=== PATIENT | male | born 1940 | race Caucasian/White ===

== ENCOUNTER 2016-08-19 15:02 | Emergency (ER) | payer MEDICARE, BC ==
[2016-08-19 15:14] VITALS: BP 177/97
[2016-08-19] MEDS ORDERED: Lidocaine/EPINEPHrine/Tetracaine Soln 5 ML Each TOP ONE (15:30)
[2016-08-19] MEDS ORDERED: Lidocaine 1% 20 ML MDV INJECT ONE (15:31)
[2016-08-19] MEDS ORDERED: Bacitracin Oint 1 GM U/D Packet TOP ONE (16:46)
--- NOTE | 2016-08-19 16:46 | EDM.PDOC ---
ED HPI GENERAL MEDICAL PROBLEM - General Chief Complaint: Laceration Stated Complaint: LEFT FOREARM LARGE SKIN TEAR Time Seen by Provider: 08/19/16 15:15 Source of Information: Reports: Patient History Limitations: Reports: No Limitations - History of Present Illness INITIAL COMMENTS - FREE TEXT/NARRATIVE: Kris is a 76 year old male who presents to the ED today with c/o left arm laceration/skin tear. Patient got his forearm caught on metal door handle then leaned into handle. Patient denies any other injuries, his DT is up to date. Patient has very thin skin, he is not on any blood thinners or steroids. Onset: Today Location: Reports: Upper Extremity, Left Severity: Moderate Left Arm Pain Score (Numeric/FACES): 1 - Related Data Allergies Allergy/AdvReac Type Severity Reaction Status Date / Time Penicillins Allergy Hives Verified 08/19/16 15:14 Home Meds: Home Meds Aspirin/Calcium Carbonate/Mag [Aspirin Buffered 325 mg Tab] 325 mg PO DAILY 06/20 [History] HCTZ/Triamterene [Maxzide 25-37.5 MG] 25 - 37.5 mg PO DAILY 02/10/13 [History] Past Medical History HEENT History: Reports: Impaired Vision Cardiovascular History: Reports: Hypertension Gastrointestinal History: Reports: Cholelithiasis Genitourinary History: Reports: Other (See Below) Other Genitourinary History: 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 Musculoskeletal History: Reports: Osteoarthritis - Past Surgical History HEENT Surgical History: Reports: Tonsillectomy Cardiovascular Surgical History: Reports: AAA repair GI Surgical History: Reports: Cholecystectomy, Hernia Repair/Other Endocrine Surgical History: Reports: Parathyroidectomy Social & Family History - Tobacco Use Smoking Status *Q: Light Tobacco Smoker Years of Tobacco use: 57 Packs/Tins Daily: 0.5 - Alcohol Use Days Per Week of Alcohol Use: 0 - Recreational Drug Use Recreational Drug Use: No ED ROS GENERAL - Review of Systems Review Of Systems: ROS reveals no pertinent complaints other than HPI. ED EXAM, SKIN/RASH Exam: See Below Exam Limited By: No Limitations General Appearance: Alert, WD/WN, No Apparent Distress Ears: Normal External Exam Head: Atraumatic Respiratory/Chest: No Respiratory Distress Cardiovascular: Normal Peripheral Pulses Neurological: Alert, Oriented Psychiatric: Normal Affect Skin: Other (6 cm laceration to left proximal forearm that extends into a 6 cm skin tear/abrasion distally) Location, Skin: Upper Extremity, Left Lymphatic: No Adenopathy ED SKIN PROCEDURES - Laceration/Wound Repair Left Upper Posterior Arm Appearance: superficial, subcutaneous Distal NVT: neuro & vascular intact, no tendon injury Anesthetic Type: topical Local anesthesia - Lidocaine (Xylocaine): 1% plain, other (LET initially) Local anesthetic volume: other (10 ml) Skin prep: saline, sterile drape Saline irrigation (cc's): 50 Exploration/Debridement/Repair: wound explored, minimal debridement, no foreign material found, wound margins revised Closed with: sutures Suture type: silk, nylon Suture size: other (6-0) # of sutures: 5 (15 5-0 Ethilon sutures) Repaired with: vicryl Course - Vital Signs Text/Narrative:: Kris is a 76 year old male who presents to the ED today after sustaining left forearm laceration/skin tear/abrasion from a door handle. Please refer to HPI and focused exam. Patient's DT is up to date. On close exam there is no tendon involvement. Patient demonstrates full ROM, distal and proximal pulses intact. Capillary refill is intact. Refer to procedure/vicryl and ethilon sutures used to close proximal laceration, wound edges cleaned, area was all well irrigated with saline. Bacitracin was applied to entire wound and non- adherent dressing and kerlix was applied. I will start patient on Keflex for infection prophylaxis given nature of wound. Wound care was discussed in detail. Patient was encouraged to follow up with PCP this week for wound check. Suture removal in 7 days. Return to the ED with any complications. Patient discharged in stable condition with his . Last Recorded V/S: Last Vital Signs Temp 36.2 C 08/19/16 15:19 Pulse 93 08/19/16 15:19 Resp 16 08/19/16 15:19 BP 177/97 H 08/19/16 15:19 Pulse Ox 95 08/19/16 15:19 - Orders/Labs/Meds Meds: Medications Discontinued Medications Generic Name Dose Route Start Last Admin Trade Name Freq PRN Reason Stop Dose Admin Bacitracin 1 dose 08/19/16 16:46 08/19/16 16:54 Bacitracin Oint 1 Gm TOP 08/19/16 16:47 1 dose ONETIME ONE Administration Lidocaine HCl 20 ml 08/19/16 15:31 08/19/16 15:48 Xylocaine 1% INJECT 08/19/16 15:32 20 ml ONETIME ONE Administration Lidocaine/Tetracaine 10 ml 08/19/16 15:30 08/19/16 15:48 Let Soln TOP 08/19/16 15:31 10 ml ONETIME ONE Administration Departure - Departure Time of Disposition: 17:20 Disposition: Home, Self-Care 01 Condition: good Clinical Impression: Laceration of forearm Qualifiers: Encounter type: initial encounter Laterality: left Qualified Code(s): S51.812A - Laceration without foreign body of left forearm, initial encounter - Discharge Information Instructions: Laceration Care, Adult, [id number] Referrals: Harpreet El MD [Primary Care Provider] - Forms: ED Department Discharge Additional Instructions: Take Keflex as prescribed. Follow up with PCP sometime this week to ensure proper healing. Return to the ED with any concerns for infection. Take care and enjoy the fish grant!
== END 2016-08-19 17:09 | disposition home or self-care (01) ==
LOC: JP.ED 15:02
DX: S51.812A Laceration without foreign body of left forearm, initial encounter (principal); I10 Essential (primary) hypertension; E89.2 Postprocedural hypoparathyroidism; F17.210 Nicotine dependence, cigarettes, uncomplicated; Z90.49 Acquired absence of other specified parts of digestive tract; Z98.890 Other specified postprocedural states; Z79.82 Long term (current) use of aspirin; Z79.899 Other long term (current) drug therapy; Z88.0 Allergy status to penicillin; W23.1XXA Caught, crushed, jammed, or pinched between stationary objects, initial encounter
CPT/HCPCS: 12002; 99283; A9270

== ENCOUNTER 2017-07-12 08:40 | Day surgery (SDC) | payer MEDICARE, BC ==
[2017-07-12] MEDS ORDERED: Lactated Ringers 1,000 ML IV SCH (09:15)
[2017-07-12] MEDS ORDERED: fentaNYL 100 MCG/2 ML SDV ONE (11:12)
[2017-07-12] MEDS ORDERED: Propofol 200 MG/20 ML SDV ONE (11:12)
[2017-07-12] MEDS ORDERED: Midazolam 1 MG/ML 2 ML SDV ONE (11:12)
[2017-07-12 13:18] VITALS: BP 132/77
--- NOTE | 2017-07-12 13:49 | OR ---
DATE OF PROCEDURE: 07/12/2017 PREOPERATIVE DIAGNOSIS: Colon cancer screening. POSTOPERATIVE DIAGNOSES: 1. Diverticulosis. 2. Poor colonoscopy prep. PROCEDURE: Colonoscopy to the cecum. ANESTHESIA: IV anesthesia with monitored anesthesia care. INDICATION: This 77-year-old white male is referred for a colonoscopy for colon cancer screening. He says his last colonoscopic exam was done 10 years ago. I counseled him for the procedure including risks and alternatives, and he gave his informed consent to proceed. PROCEDURE IN DETAIL: The patient was placed in the left lateral decubitus position. IV anesthesia was administered by the Anesthesia Service. Time-out was held. A rectal exam was performed, which was unremarkable. The flexible video Olympus colonoscope was introduced through his anus, up his rectum, out his colon, all the way to the cecum. We encountered a lot of liquid and some solid stool. We aspirated much of the liquid stool as we could but plugged the scope several times. Once the cecum was reached, the scope was slowly withdrawn, examining the mucosa throughout. No mucosal abnormalities were noted until we reached the left colon here and in the sigmoid colon, we saw multiple, sometimes large diverticula. There was no bleeding or inflammation associated with any of them. The scope was retroflexed in the rectum with the distal rectum appearing unremarkable. The scope was straightened and removed. He tolerated the procedure well. Surya Bryson MD /[id number]
== END 2017-07-12 13:20 | disposition home or self-care (01) ==
LOC: JP.SDS 08:40
PROVIDERS: ATTEND Surgery
DX: Z12.11 Encounter for screening for malignant neoplasm of colon (principal); K57.30 Diverticulosis of large intestine without perforation or abscess without bleeding; I10 Essential (primary) hypertension; I71.4 Abdominal aortic aneurysm, without rupture; Z88.1 Allergy status to other antibiotic agents; Z88.0 Allergy status to penicillin
CPT/HCPCS: G0121; J2250; J2704; J3010; J7120

== ENCOUNTER 2018-05-03 07:20 | Day surgery (SDC) | payer MEDICARE, BC ==
[2018-05-03] MEDS ORDERED: Sodium Chloride 0.9% 10 ML Syringe FLUSH PRN (08:30)
[2018-05-03 08:41] VITALS: BP 159/74
--- NOTE | 2018-05-03 12:47 | OR ---
DATE OF PROCEDURE: 05/03/2018 POSTOPERATIVE CARE: Postoperative care will be provided mainly at the [address] [place] [address] [facility] in conjunction with [facility]. PREOPERATIVE DIAGNOSIS: Cataract, left eye. POSTOPERATIVE DIAGNOSIS: Cataract, left eye. PROCEDURE: Phacoemulsification with intraocular lens placement, left eye. ANESTHESIA: Topical and intracameral. ESTIMATED BLOOD LOSS: Minimal. COMPLICATIONS: None. PATHOLOGY SPECIMENS: None. SURGICAL FINDINGS: None. INDICATION FOR PROCEDURE: The patient is a 78-year-old male with history of a visually significant cataract in the left eye, which interfered with activities of daily living. This consisted of a nuclear sclerosis cataract. Following careful discussion of the risks, benefits and alternatives to cataract extraction with intraocular lens placement including blindness and , the patient elected to proceed, and informed, written consent was obtained prior to the procedure. DESCRIPTION OF THE PROCEDURE: The patient was previously identified, and a rubio placed above the left eye. All sources, including the patient, indicated that the left eye was the correct eye. The patient was subsequently taken to the operating room where standard monitors were applied. The patient was then prepped and draped in the usual sterile fashion for ophthalmic surgery. Attention was first directed at the 12 o'clock position where a paracentesis port was fashioned. Shugar solution followed by Viscoat was instilled into the eye. Attention was then directed to the 8:30 position where a triplanar incision was made in a near-clear manner using a keratome. A continuous capsulorrhexis was then made using a combination of the cystotome and Utrata forceps. Hydrodissection was achieved using a balanced salt solution, and the lens rotated nicely. Phacoemulsification was then done using a modified [id number] technique without complication. Phaco time was 9.46 CDE. The remaining cortex was removed using the irrigation/aspiration handpiece. Provisc was then instilled into the eye. A Technis lens, model [id number], at 21.0 Diopters was then placed in the capsular bag using an Bud injector. The remaining viscoelastic was removed using the irrigation/aspiration forceps. All wounds were then checked and found to be watertight. The lid speculum and drapes were removed. Maxitrol ointment was placed in the patient's left eye, and the eye was shielded. The patient tolerated the procedure well. The patient was instructed to follow up tomorrow. All needle and sponge counts were correct at the end of the procedure. There were no surgical findings. Radha Guillory MD /[id number]
== END 2018-05-03 09:00 | disposition home or self-care (01) ==
LOC: JP.SDS 07:20
PROVIDERS: ATTEND Ophthalmology
DX: H25.12 Age-related nuclear cataract, left eye (principal); I10 Essential (primary) hypertension; F17.200 Nicotine dependence, unspecified, uncomplicated
CPT/HCPCS: 66984; V2632

== ENCOUNTER 2018-12-30 09:04 | Emergency (ER) | payer MEDICARE, BC ==
[2018-12-30 09:22] VITALS: BP 150/89; PULSE 84
--- NOTE | 2018-12-30 09:41 | EDM.PDOC ---
ED HPI GENERAL MEDICAL PROBLEM - General Chief Complaint: ENT Problem Stated Complaint: CANNOT HEAR BOTH EARS MAYBE FULL OF WAX Time Seen by Provider: 12/30/18 09:39 Source of Information: Reports: Patient History Limitations: Reports: No Limitations - History of Present Illness INITIAL COMMENTS - FREE TEXT/NARRATIVE: pt feels like his ears are plugged. He has a chronic wax problem. Onset: Today Duration: Hour(s): Location: Reports: Face Associated Symptoms: Reports: Other (plugged ears. ) - Related Data Allergies Allergy/AdvReac Type Severity Reaction Status Date / Time Penicillins Allergy Hives Verified 12/30/18 09:21 Tetracyclines Allergy Other Verified 12/30/18 09:21 procaine Allergy Other Uncoded 12/30/18 09:21 Home Meds: Home Meds HCTZ/Triamterene [Maxzide 25-37.5 MG] 25 - 37.5 mg PO DAILY 02/10/13 [History] Aspirin 325 mg PO DAILY 07/10/17 [History] Naproxen 250 mg PO DAILY 07/10/17 [History] Past Medical History HEENT History: Reports: Cataract, Impaired Vision, Other (See Below) Other HEENT History: wears glasses, has chroic ear wax Cardiovascular History: Reports: Aneurysm, High Cholesterol, Hypertension, Syncope Gastrointestinal History: Reports: Cholelithiasis, Hemorrhoids Genitourinary History: Reports: Other (See Below) Other Genitourinary History: 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 Musculoskeletal History: Reports: Back Pain, Chronic, Osteoarthritis Endocrine/Metabolic History: Reports: None Dermatologic History: Reports: Cellulitis - Infectious Disease History Infectious Disease History: Reports: Chicken Pox, Mumps - Past Surgical History Head Surgeries/Procedures: Reports: None HEENT Surgical History: Reports: Tonsillectomy Cardiovascular Surgical History: Reports: AAA Repair GI Surgical History: Reports: Cholecystectomy, Colonoscopy, Hernia Repair/Other Male Surgical History: Reports: Vasectomy Endocrine Surgical History: Reports: Parathyroidectomy Musculoskeletal Surgical History: Reports: None Dermatological Surgical History: Reports: None Social & Family History - Tobacco Use Smoking Status *Q: Current Every Day Smoker Years of Tobacco use: 60 Packs/Tins Daily: 0.5 Used Tobacco, but Quit: No - Caffeine Use Caffeine Use: Reports: Coffee, Soda - Recreational Drug Use Recreational Drug Use: No ED ROS ENT - Review of Systems Review Of Systems: See Below Constitutional: Reports: No Symptoms HEENT: Reports: Other ( ears are plugged) Respiratory: Reports: No Symptoms Cardiovascular: Reports: No Symptoms Endocrine: Reports: No Symptoms GI/Abdominal: Reports: No Symptoms : Reports: No Symptoms Musculoskeletal: Reports: No Symptoms Skin: Reports: No Symptoms ED EXAM, ENT - Physical Exam Exam: See Below Text/Narrative:: pt arrived with plugged ears winston;teral. He got up this am and he was not able to hear at all. He has a problem with wax in his ears and he uses wax softner drops regularly. Exam Limited By: No Limitations General Appearance: Alert, No Apparent Distress, Other (pt can not hear) Ears: Other ( both impacted with wax. Once the wax was cleared there was irritation noted. ) Nose: Normal Inspection Mouth/Throat: Normal Inspection Head: Atraumatic Neck: Normal Inspection Course - Vital Signs Last Recorded V/S: Last Vital Signs Temp 35.1 C L 12/30/18 09:22 Pulse 84 12/30/18 09:22 Resp 19 12/30/18 09:22 BP 150/89 H 12/30/18 09:22 Pulse Ox 96 12/30/18 09:22 - Re-Assessments/Exams Free Text/Narrative Re-Assessment/Exam: 12/30/18 10:16 both ears were irrigated and large chunks of wax was removed. The canals were irritated. Departure - Departure Time of Disposition: 10:07 Disposition: Home, Self-Care 01 Condition: Fair Clinical Impression: External otitis, Impacted ear wax - Discharge Information Instructions: Otitis Externa, [id number] Referrals: PCP,None [Primary Care Provider] - Forms: ED Department Discharge Care Plan Goals: corticosporin ear drops 1-2 drops in each ear tid for 1 week.
== END 2018-12-30 10:16 | disposition home or self-care (01) ==
LOC: JP.ED 09:04
DX: H61.23 Impacted cerumen, bilateral (principal); H60.93 Unspecified otitis externa, bilateral; F17.210 Nicotine dependence, cigarettes, uncomplicated; Z88.0 Allergy status to penicillin; Z88.1 Allergy status to other antibiotic agents; Z79.82 Long term (current) use of aspirin; Z90.49 Acquired absence of other specified parts of digestive tract; Z98.890 Other specified postprocedural states
CPT/HCPCS: 69209; 99283; 99283-25

== ENCOUNTER 2020-05-03 18:48 | Emergency (ER) | payer MEDICARE, BC ==
[~2020-05-03 18:48] MED LIST: LORazepam 2 MG/ML SDV ONE
[2020-05-03] MEDS ORDERED: LORazepam 2 MG/ML SDV IVPUSH ONE ×2 (18:59)
--- NOTE | 2020-05-03 19:02 | EDM.PDOC ---
ED HPI GENERAL MEDICAL PROBLEM - General Stated Complaint: MED [facility]IA [facility] Time Seen by Provider: 05/03/20 18:48 Source of Information: Reports: EMS History Limitations: Reports: Altered Mental Status, Physical Impairment - History of Present Illness INITIAL COMMENTS - FREE TEXT/NARRATIVE: 80-year-old male brought in by ambulance as a trauma code, found unresponsive on the driveway at his home hypothermic, unresponsive with a rhythmic tremor like movement of his left arm and fixed focus to the right. Very hypothermic, but other than low temperature which is unobtainable his O2 sats are 98%, airway is maintained, and blood pressure is normal. There is blood on his right hand from a small laceration. It is unknown how long he has been down. Onset: Unknown/Unsure - Related Data Allergies Allergy/AdvReac Type Severity Reaction Status Date / Time Penicillins Allergy Hives Unverified 05/03/20 22:56 Tetracyclines Allergy Other Unverified 05/03/20 22:56 procaine Allergy Other Uncoded 12/30/18 09:21 Home Meds: Home Meds HCTZ/Triamterene [Maxzide 25-37.5 MG] 25 - 37.5 mg PO DAILY 02/10/13 [History] Aspirin 325 mg PO DAILY 07/10/17 [History] Naproxen 250 mg PO DAILY 07/10/17 [History] Past Medical History HEENT History: Reports: Cataract, Impaired Vision, Other (See Below) Other HEENT History: wears glasses, has chroic ear wax Cardiovascular History: Reports: Aneurysm, High Cholesterol, Hypertension, Syncope Gastrointestinal History: Reports: Cholelithiasis, Hemorrhoids Genitourinary History: Reports: Other (See Below) Other Genitourinary History: 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 Musculoskeletal History: Reports: Back Pain, Chronic, Osteoarthritis Endocrine/Metabolic History: Reports: None Dermatologic History: Reports: Cellulitis - Infectious Disease History Infectious Disease History: Reports: Chicken Pox, Mumps - Past Surgical History Head Surgeries/Procedures: Reports: None HEENT Surgical History: Reports: Tonsillectomy Cardiovascular Surgical History: Reports: AAA Repair GI Surgical History: Reports: Cholecystectomy, Colonoscopy, Hernia Repair/Other Male Surgical History: Reports: Vasectomy Endocrine Surgical History: Reports: Parathyroidectomy Musculoskeletal Surgical History: Reports: None Dermatological Surgical History: Reports: None Social & Family History - Caffeine Use Caffeine Use: Reports: Coffee, Soda Review of Systems - Review of Systems Review Of Systems: See Below (Unobtainable due to unresponsive nature of the patient and unknown history leading to this event) ED EXAM, GENERAL - Physical Exam Exam: See Below Free Text/Narrative:: Unresponsive patient, I spontaneously open and focusing to the right. Not responding to pain but acting agitated and continually rubbing the right side of his face with his left arm. He has blood on his right hand. Extremities are cold, he has significant bruising to the arms and anterior knees with surrounding erythema. An IO was started by EMS. Their care is in route. Exam Limited By: Physical Impairment General Appearance: Obtunded Eye Exam: Bilateral Eye: PERRL (Pupils are equal, small, and reactive to light), Other Ears: Normal TMs Head: Atraumatic (I cannot find any external evidence of trauma to the head) Respiratory/Chest: Rhonchi (Few scattered rhonchi but otherwise clear lungs) Cardiovascular: Regular Rate, Rhythm, Tachycardia (Mild tachycardia), Other (Blood pressure 151/74) GI/Abdominal: Soft, Other (No involuntary guarding, no distention) Extremities: Other (1.5 cm laceration on the right hand, he is got significant cutaneous bruising on his forearms and anterior knees bilaterally, surrounding erythema around the bruising on his knees) Course - Orders/Labs/Meds Labs: Laboratory Tests 05/03/20 05/03/20 05/03/20 Range/Units 18:55 18:55 18:55 WBC 24.2 H (4.5-11.0) K/uL RBC 5.41 (4.30-5.90) M/uL Hgb 17.8 H (12.0-15.0) g/dL Hct 53.8 (40.0-54.0) % MCV 99 H (80-98) fL MCH 33 H (27-31) pg MCHC 33 (32-36) % Plt Count 189 (150-400) K/uL Add Manual Diff Yes Neutrophils % (Manual) 74 H (36-66) % Band Neutrophils % 4 L (5-11) % Lymphocytes % (Manual) 17 L (24-44) % Monocytes % (Manual) 4 (2-6) % Eosinophils % (Manual) 1 L (2-4) % Atypical Lymphocytes Sodium 136 L (140-148) mmol/L Potassium 5.0 (3.6-5.2) mmol/L Chloride 100 (100-108) mmol/L Carbon Dioxide 14 L (21-32) mmol/L Anion Gap 27.0 H (5.0-14.0) mmol/L BUN 28 H (7-18) mg/dL Creatinine 2.0 H (0.8-1.3) mg/dL Est Cr Clr Drug Dosing 31.90 mL/min Estimated GFR (MDRD) 32 L (>60) Glucose 320 H (74-106) mg/dL Calcium 9.9 (8.5-10.1) mg/dL Total Bilirubin 0.5 (0.2-1.0) mg/dL AST 23 (15-37) U/L ALT 14 (12-78) U/L Alkaline Phosphatase 100 (46-116) U/L Creatine Kinase (39-308) U/L Total Protein 7.0 (6.4-8.2) g/dL Albumin 3.1 L (3.4-5.0) g/dL Globulin 3.9 H (2.3-3.5) g/dL Albumin/Globulin Ratio 0.8 L (1.2-2.2) Ethyl Alcohol < 3 mg/dL 05/03/20 Range/Units 19:09 WBC (4.5-11.0) K/uL RBC (4.30-5.90) M/uL Hgb (12.0-15.0) g/dL Hct (40.0-54.0) % MCV (80-98) fL MCH (27-31) pg MCHC (32-36) % Plt Count (150-400) K/uL Add Manual Diff Neutrophils % (Manual) (36-66) % Band Neutrophils % (5-11) % Lymphocytes % (Manual) (24-44) % Monocytes % (Manual) (2-6) % Eosinophils % (Manual) (2-4) % Atypical Lymphocytes Sodium (140-148) mmol/L Potassium (3.6-5.2) mmol/L Chloride (100-108) mmol/L Carbon Dioxide (21-32) mmol/L Anion Gap (5.0-14.0) mmol/L BUN (7-18) mg/dL Creatinine (0.8-1.3) mg/dL Est Cr Clr Drug Dosing mL/min Estimated GFR (MDRD) (>60) Glucose (74-106) mg/dL Calcium (8.5-10.1) mg/dL Total Bilirubin (0.2-1.0) mg/dL AST (15-37) U/L ALT (12-78) U/L Alkaline Phosphatase (46-116) U/L Creatine Kinase 149 (39-308) U/L Total Protein (6.4-8.2) g/dL Albumin (3.4-5.0) g/dL Globulin (2.3-3.5) g/dL Albumin/Globulin Ratio (1.2-2.2) Ethyl Alcohol mg/dL Meds: Medications Discontinued Medications Generic Name Dose Route Start Last Admin Trade Name Freq PRN Reason Stop Dose Admin Lorazepam 1 mg 05/03/20 18:59 Ativan IVPUSH 05/03/20 19:00 ONETIME ONE Lorazepam 1 mg 05/03/20 18:59 Ativan IVPUSH 05/03/20 19:00 ONETIME ONE - Re-Assessments/Exams Free Text/Narrative Re-Assessment/Exam: 05/03/20 19:15 Second IV was started, warm IV fluids were initiated and the patient was placed in a bear hugger. Urgency CT scan of the head showed no evidence of trauma or bleeding but significant atrophy. 2 mg of IV Ativan was needed to settle him do wn to get the CT. Urgent consultation was made with [facility] in [place], patient will be flown as a suspected right middle cerebral CVA ischemia, significant hypothermia and potential significant rhabdomyolysis. Labs are pending 05/03/20 19:44 CK returned normal, white count was 24,000. Patient remained stable but unresponsive, blood pressure and O2 saturations were normal. He was maintaining his airway without difficulty. 05/03/20 22:34 When we finally were able to get a temperature his core temperature was only 78. Departure - Departure Time of Disposition: 19:30 Disposition: DC/Tfer to Other Clinical Impression: Hypothermia due to exposure, Laceration of right hand, Unresponsive - Discharge Information Referrals: PCP,None [Primary Care Provider] - Care Plan Goals: Patient was urgently transferred to [facility] for evaluation of possible cerebral ischemia, and treatment for severe hypothermia and unresponsive state.
--- NOTE | 2020-05-03 19:26 | CRLCT ---
INDICATION: head trauma, decreased responsiveness CT HEAD WITHOUT CONTRAST TECHNIQUE: Multiple axial CT images were performed through the head without intravenous contrast administration. COMPARISON: No previous studies are currently available for comparison. FINDINGS: The exam is mildly limited by motion. No acute intracranial hemorrhage is identified. No extra-axial collections are evident and there is no mass effect or midline shift. There is mild diffuse age-related brain atrophy. Ventricular size and configuration are within normal limits for the patient`s age. Hudson-white differentiation is within normal limits. There is patchy hypodensity in the periventricular white matter, a nonspecific finding which most likely reflects chronic small vessel ischemic change. Intracranial atherosclerotic vascular calcifications are noted. Osseous structures are within normal limits and no fractures are seen. Included portions of the paranasal sinuses and mastoid air cells are normally aerated. IMPRESSION: 1. No acute intracranial abnormality identified. 2. Mild age-related brain atrophy, white matter hypodensity consistent with chronic small vessel ischemic change, and intracranial atherosclerotic vascular calcifications. TINY DRAKE MD [employer] Dictated by: Warren Drake MD @ 05/03/2020 19:26:21 (Electronically Signed)
[2020-05-03 23:53] VITALS: BP 180/74; PULSE 97
== END 2020-05-03 19:15 | disposition other institution (70) ==
LOC: JP.ED 18:48
DX: T68.XXXA Hypothermia, initial encounter (principal); S61.411A Laceration without foreign body of right hand, initial encounter; S50.12XA Contusion of left forearm, initial encounter; S50.11XA Contusion of right forearm, initial encounter; S80.02XA Contusion of left knee, initial encounter; S80.01XA Contusion of right knee, initial encounter; R40.1 Stupor; R00.0 Tachycardia, unspecified; I10 Essential (primary) hypertension; M19.90 Unspecified osteoarthritis, unspecified site; Z88.0 Allergy status to penicillin; Z88.1 Allergy status to other antibiotic agents; Z79.82 Long term (current) use of aspirin; Z88.4 Allergy status to anesthetic agent; X58.XXXA Exposure to other specified factors, initial encounter
CPT/HCPCS: 36415; 70450; 80053; 80307; 82550; 85025; 96374; 99285; J2060

== ENCOUNTER → 2021-04-22 | Day surgery (SDC) | payer MEDICARE, BC ==
[~2021-04-22] MED LIST changes: -LORazepam 2 MG/ML SDV ONE; +Sodium Chloride 0.9% 10 ML Syringe FLUSH PRN
[2021-04-22 07:44] VITALS: BP 135/84; PULSE 80
== END ==
LOC: JP.SDS 06:16
PROVIDERS: ATTEND Ophthalmology
DX: H25.11 Age-related nuclear cataract, right eye (principal); J44.9 Chronic obstructive pulmonary disease, unspecified; F17.200 Nicotine dependence, unspecified, uncomplicated
CPT/HCPCS: 66984; V2632

== ENCOUNTER 2022-04-29 07:11 | Day surgery (SDC) | payer MEDICARE, BC ==
[~2022-04-29 07:11] MED LIST changes: +Bacitracin Oint 1 GM U/D Packet ONE; -Sodium Chloride 0.9% 10 ML Syringe FLUSH PRN
[2022-04-29] MEDS ORDERED: Propofol 200 MG/20 ML SDV ONE (07:15)
[2022-04-29] MEDS ORDERED: Midazolam 1 MG/ML 2 ML SDV ONE (07:15)
[2022-04-29] MEDS ORDERED: fentaNYL 50 MCG/ML SDV ONE (07:15)
[2022-04-29] MEDS: Lidocaine 1% 50 ML MDV ONE ×2 (07:42→08:55)
[2022-04-29] MEDS: Bupivacaine 0.5%/EPINEPHrine 1:200,000 50 ML MDV ONE ×2 (07:42→08:55)
[2022-04-29] MEDS ORDERED: Clindamycin in 0.9 % Sod Chlor 900 MG in Premix Bag 1 BAG IV ONE ×2 (08:00)
[2022-04-29] MEDS ORDERED: Lactated Ringers 1,000 ML IV SCH (08:00)
[2022-04-29] MEDS ORDERED: Acetaminophen 500 MG Tab PO ONE (08:00)
[2022-04-29] MEDS ORDERED: Clindamycin Phosphate in D5W 900 MG in Premix Bag 1 BAG IV ONE ×2 (08:00)
[2022-04-29] MEDS ORDERED: Acetaminophen 325 MG Tab PO ONE (08:30)
[2022-04-29 10:36] VITALS: BP 115/64; PULSE 58
== END 2022-04-29 10:51 | disposition home or self-care (01) ==
LOC: JP.SDS 07:11
PROVIDERS: ATTEND Student in an Organized Health Care Education/Training Program
DX: C44.40 Unspecified malignant neoplasm of skin of scalp and neck (principal); I12.9 Hypertensive chronic kidney disease with stage 1 through stage 4 chronic kidney disease, or unspecified chronic kidney disease; N18.30 Chronic kidney disease, stage 3 unspecified; E78.00 Pure hypercholesterolemia, unspecified; F17.210 Nicotine dependence, cigarettes, uncomplicated; I42.9 Cardiomyopathy, unspecified; I25.10 Atherosclerotic heart disease of native coronary artery without angina pectoris; Z88.0 Allergy status to penicillin; Z88.1 Allergy status to other antibiotic agents; Z88.4 Allergy status to anesthetic agent; Z98.890 Other specified postprocedural states; Z79.899 Other long term (current) drug therapy; Z86.73 Personal history of transient ischemic attack (TIA), and cerebral infarction without residual deficits; Z95.5 Presence of coronary angioplasty implant and graft
CPT/HCPCS: 88305; A9270-GY; J2001; J2250; J2704; J3010; J3490; J7120